=== PATIENT | male | born 1995 | race Caucasian/White ===

== ENCOUNTER 2017-10-15 14:18 | Emergency (ER) | payer MEDICAID, SELFPAY ==
[2017-10-15 14:20] VITALS: BP 149/93; PULSE 109; RESP 16; TEMP 36.6; O2SAT 98; BMI 21.7
--- NOTE | 2017-10-15 14:27 | [facility].EDCP ---
ED Disposition Clinical Impression: Atypical chest pain, Polysubstance abuse Disposition: Home, Self-Care Condition on Discharge: Good Instructions: DI for Atypical Chest Pain, DI for Drug Abuse and Drug Addiction Additional Instructions: I strongly recommend not using any street drugs, including marijuana. Do not use any prescription medications that were not prescribed for you, including Adderall. I also strongly recommend that you follow-up with your primary care physician for further heart evaluation such as stress test and echocardiogram. Additional instructions for CHEST PAIN: See your physician as soon as possible for further evaluation. Return immediately if worsening chest pain, vomiting, shortness of breath, fever, coughing of blood. Referrals: Gabriel Fulton [Primary Care Provider] - - Critical Care Critical Care Time: No Attestation: On , the high probability of a clinically significant, sudden or life threatening deterioration of the following system(s) required my full and direct attention, intervention and personal management. The time I documented below is in addition to time spent performing reported procedures but includes the following listed in this critical care notation. Medical Decision Making - [facility] Inquiry Pt receiving controlled substance: No Vital Signs: 10/15/17 14:20 Temperature 98 F Temperature Source Oral Pulse Rate [Right Brachial] 109 H Respiratory Rate 16 Blood Pressure [Right Arm] 149/93 Blood Pressure Mean [Right Arm] 111 Blood Pressure Source [Right Arm] Automatic Cuff Blood Pressure Position [Right Arm] Supine 02 Sat by Pulse Oximetry 98 Oxygen Delivery Method Room Air - Lab Data Lab Results 10/15/17 14:40: WBC 10.7, RBC 5.16, Hgb 15.7, Hct 46.6, MCV 90.3, MCH 30.5, MCHC 33.8, RDW 11.6, Plt Count 307, MPV 7.6, Neut % (Auto) 68.6, Lymph % (Auto) 26.1, Evans % (Auto) 4.7, Eos % (Auto) 0.3, Baso % (Auto) 0.2, Neut # (Auto) 7.4, Lymph # (Auto) 2.8, Evans # (Auto) 0.5, Eos # (Auto) 0.0, Baso # (Auto) 0.0 10/15/17 14:40: Sodium 140, Potassium 3.6, Chloride 104, Carbon Dioxide 25, Anion Gap 14.6, BUN 6 L, Creatinine 0.94, Estimated Creat Clear 127, Estimated GFR 100, Est GFR ( Amer) 121, Glucose 91, Calcium 9.2, Total Bilirubin 0.6, AST 20, ALT 28, Alkaline Phosphatase 109, Total Creatine Kinase 174, CK-MB (CK-2) 1.4, CK-MB (CK-2) Rel Index 0.8, Troponin I < 0.02, Total Protein 8.5 H, Albumin 4.8, Globulin 3.7 H, Albumin/Globulin Ratio 1.3 10/15/17 14:40: D-Dimer < 100 10/15/17 14:40: Lipase 52 L 10/15/17 15:00: Urine Opiates Screen Negative, Ur Barbituates Screen Negative, Ur Phencyclidine Scrn Negative, Ur Amphetamines Screen Positive H, U Methamphetamines Scrn Negative, U Benzodiazepines Scrn Negative, Urine Cocaine Screen Negative, U Marijuana (THC) Screen Positive H Result diagrams: 10/15/17 14:40 10/15/17 14:40 Orders (Tests/Meds): ED MEDICATIONS Discontinued Medications Generic Name Dose Route Start Last Admin Trade Name Sarathq PRN Reason Stop Dose Admin Sodium Chloride 1,000 ml 10/15/17 14:46 10/15/17 16:33 Sod Chlor 0.9% 1000ml Bag IV 10/15/17 14:47 1,000 ml BOLUS ONE Administration - ECG Data Tracing #1 EKG interpreted by Gabriel Ndiaye MD: Rhythm: sinus, sinus arrhythmia Rate: 99 [place]: normal Ectopy: none Conduction: normal ST Segment Changes: Inferior and lateral depression T Wave Changes: Inferior lateral Q Waves: none No evidence of acute ischemia or injury Medical Decision Narrative: 3:40 PM: Records from [facility] [place] emergency department visit reviewed. He was seen there on August 25. EKG at that time has the same findings as today, it is unchanged today. His toxicology screen was also positive for THC and amphetamines at that time, the same as today. I feel like his symptoms are due to drug use. 4:35 PM: Discussed test results with patient. He states he used Adderall a couple of days
--- NOTE | 2017-10-15 14:30 | XR_ITS ---
XR chest 2V HISTORY: Chest pain and weakness ITS.REASON: weakness,cp ORDERING PHYSICIAN: Gabriel Ndiaye MD PATIENT AGE: 22 years COMPARISON: None available FINDINGS: The cardiomediastinal silhouette and pulmonary vascularity are within normal limits. The lungs are clear without infiltrates, suspicious nodules, or pleural effusions. No acute bony abnormalities. IMPRESSION: Negative chest, no acute finding
[2017-10-15 15:09] LABS: Basophils % 0.2 % (0.1-2.0); Eosinophils % 0.3 % (0.1-12.0); Hematocrit 46.6 % (42.0-52.0); Hemoglobin 15.7 g/dL (14.1-18.0); Lipase 52 u/L (73-393); Lymphocytes # 2.8 K/mm3 (0.7-4.5); Lymphocytes % 26.1 K/mm3 (10-50); Mean Corpuscular HGB Conc 33.8 g/dL (31.8-35.4); Mean Corpuscular Hemoglobin 30.5 pg (27.0-31.2); Mean Corpuscular Volume 90.3 fl (80-94); Mean Platelet Volume 7.6 fl (7.4-10.4); Monocytes # 0.5 K/mm3 (0.1-1.0); Monocytes % 4.7 % (1.7-9.3); Neutrophils # 7.4 K/mm3 (1.8-7.8); Neutrophils % 68.6 % (37.0-80.0); Platelet Count 307 K/mm3 (142-424); Red Blood Count 5.16 M/mm3 (4.60-6.20); Red Cell Distribution Width 11.6 % (11.5-17.5); White Blood Count 10.7 K/mm3 (4.8-10.8)
[2017-10-15 15:16] LABS: Amphetamine/Metha Screen,Urine Positive ng/mL (<1000); Barbiturates Screen,Urine Negative ng/mL (<200); Benzodiazepines Screen,Urine Negative ng/mL (200); Cannabinoid Screen,Urine Positive ng/mL (<50); Cocaine Screen,Urine Negative ng/g (<300); Methadone Screen,Urine Negative ng/mL (<300); Opiate Screen,Urine Negative ng/mL (<300); Phencyclidine Screen,Urine Negative ng/mL (<25)
[2017-10-15 15:26] LABS: Alanine Aminotransferase 28 U/L (12-78); Albumin Level 4.8 gm/dL (3.4-5.0); Albumin/Globulin Ratio 1.3 (1.1-1.8); Alkaline Phosphatase 109 U/L (46-116); Anion Gap 14.6 mEq/L (5-15); Aspartate Amino Transferase 20 U/L (15-37); Bilirubin,Total 0.6 mg/dL (0.2-1.0); Blood Urea Nitrogen 6 mg/dL (7-18); CKMB Relative Index 0.8 U/L (0-4.0); Calcium 9.2 mg/dL (8.5-10.1); Carbon Dioxide 25 mmol/L (21.0-32.0); Chloride 104 mmol/L (98-107); Creatine Kinase 174 U/L (39-308); Creatine Kinase MB 1.4 mg/ml (0.0-3.6); Creatinine Clearance Estimated 127 mL/min (0-300); Creatinine,Serum 0.94 mg/dL (0.70-1.30); Estimated Glomerular Filt Rate 100 ml/min (>60); GFR (African American) 121 ML/MIN (>60); Globulin 3.7 gm/dl (1.3-3.2); Glucose 91 mg/dL (74-106); Potassium 3.6 mmoL/L (3.5-5.1); Sodium 140 mmol/L (136-145); Total Protein,Serum 8.5 gm/dL (6.4-8.2); Troponin I < 0.02 ng/ml (0.00-0.06)
[2017-10-15 15:36] LABS: D-Dimer < 100 (0-400)
[2017-10-15 17:19] VITALS: BP 138/94; PULSE 78; RESP 16; TEMP 36.9; O2SAT 98
[2017-10-15 17:20] VITALS: PULSE 99
[2017-10-15 17:21] VITALS: BP 158/79; PULSE 77; RESP 18; TEMP 36.9; O2SAT 99
== END 2017-10-15 17:23 | disposition home or self-care (01) ==
PROVIDERS: Emergency Provider Emergency Medicine; PCP Pediatrics
DX: F19.10 Other psychoactive substance abuse, uncomplicated (principal)
CPT/HCPCS: 71046; 80053; 80305; 82550; 82553; 83690; 84484; 85025; 85378; 93005; 96365; 99284